=== PATIENT | female | born 1985 | race Caucasian/White ===

== ENCOUNTER 2020-08-11 09:14 | Emergency (ER) | payer MEDICAID ==
[~2020-08-11] VITALS: Ht 157.5 cm; Wt 45.0 kg
[~2020-08-11 09:14] MED LIST: CIPROFLOXACN500 MG PO; CONCEPT OB PO; PRENATAL1 TAB PO; PYRIDIUM200 MG PO; RHO (D) IMMUN300 MCG IM
[2020-08-11 09:38] VITALS: BP 143/67
[2020-08-11 11:40] LABS: HEMATOCRIT 43.4 % (37.0-47.0); IMMATURE GRANULOCYTES 0.2 % (0.0-5.0); MEAN CELL VOLUME 81.7 fL CALC (80.0-100.0); MEAN CORPUSCULAR HGB 26.4 pG CALC (26.0-32.0); MEAN CORPUSCULAR HGB CONC 32.3 g/dL CAL (32.0-36.0); NEUT# 6.65 thou/uL (2.00-7.15); RED BLOOD COUNT 5.31 mill/uL (4.20-5.60); RED CELL DISTRI WIDTH 12.9 % (11.5-15.5); URINE BILIRUBIN - DIPSTICK NEGATIVE (NEGATIVE); URINE BLOOD DIPSTICK NEGATIVE (NEGATIVE); URINE COLOR YELLOW; URINE GLUCOSE - DIPSTICK NEGATIVE (NEGATIVE); URINE KETONE NEGATIVE (NEGATIVE); URINE LEUK ESTERASE NEGATIVE (NEGATIVE); URINE PROTEIN - DIPSTICK NEGATIVE (NEG-TRACE); URINE UROBILINOGEN - DIPSTICK 0.2 E.U./dL (0.2)
[2020-08-11 11:41] LABS: URINE NITRITE - DIPSTICK NEGATIVE (Negative)
[2020-08-11 11:46] LABS: ALBUMIN 3.9 g/dL (3.2-5.0); ALKALINE PHOSPHATASE 89 u/l (38-126); AMYLASE 88 u/l (30-110); ANION GAP 9 (6-22 (CALC)); BILIRUBIN, TOTAL 0.3 mg/dL (0.0-1.4); BUN 13 mg/dL (7-17); BUN/CREATININE RATIO 23 (12-20 (CALC)); CARBON DIOXIDE 28 mmol/l (22-30); CHLORIDE 102 mmol/l (95-108); CREATININE 0.6 mg/dL (0.5-1.0); GFR > 60 ML/MIN (>=60 (CALC)); GFR FOR AFR.AMER. > 60 ML/MIN (>=60 (CALC)); LIPASE 67 u/l (23-300); SGOT/AST 18 u/l (14-36); SODIUM 135 mmol/l (137-146); TOTAL PROTEIN 6.3 g/dL (6.3-8.2)
== END 2020-08-11 14:01 | disposition home or self-care (01) ==
LOC: ED 09:14
PROVIDERS: Emergency Medicine
DX: R10.13 Epigastric pain (principal); R10.11 Right upper quadrant pain

== ENCOUNTER 2023-03-24 23:33 | Emergency (ER) | payer MEDICAID ==
[~2023-03-24] VITALS: Ht 157.5 cm; Wt 50.8 kg
[2023-03-25 00:22] VITALS: BP 118/63
[2023-03-25 01:00] VITALS: BP 113/68
[2023-03-25 01:05] LABS: BASO% 0.5 % (0-3); EOS% 0.9 % (0-8); HEMATOCRIT 34.6 % (37.0-47.0); HEMOGLOBIN 10.7 g/dl (12.0-16.0); IMMATURE GRANULOCYTES 0.2 % (0.0-5.0); LYMPH% 21.9 % (15-41); MEAN CELL VOLUME 72.7 fL CALC (80.0-100.0); MEAN CORPUSCULAR HGB 22.5 pG CALC (26.0-32.0); MEAN CORPUSCULAR HGB CONC 30.9 g/dL CAL (32.0-36.0); MONO% 12.9 % (2-13); NEUT# 2.81 thou/uL (2.00-7.15); NEUT% 63.6 % (42-76); RED BLOOD COUNT 4.76 mill/uL (4.20-5.60)
[2023-03-25 01:18] LABS: ALBUMIN 4.1 g/dL (3.2-5.0); ALKALINE PHOSPHATASE 54 u/l (38-126); BILIRUBIN, TOTAL 0.2 mg/dL (0.02-1.3); BUN 12 mg/dL (7-17); BUN/CREATININE RATIO 12 (12-20 (CALC)); CARBON DIOXIDE 26 mmol/l (22-30); CHLORIDE 110 mmol/l (95-108); ETHYL ALCOHOL 0 mg/dl (0-30); GFR FOR AFR.AMER. > 60 ML/MIN (>=60 (CALC)); GFR OTHER RACES > 60 ML/MIN (>=60 (CALC)); SGOT/AST 23 u/l (14-36); SODIUM 141 mmol/l (137-146); TOTAL PROTEIN 6.4 g/dL (6.3-8.2)
[2023-03-25 01:21] LABS: ANION GAP 8 (6-22 (CALC)); POTASSIUM 3.3 mmol/l (3.5-5.1)
[2023-03-25 02:00] VITALS: BP 110/68
[2023-03-25] MEDS ORDERED: INDERAL10 M1 PO (02:52)
[2023-03-25] MEDS ORDERED: ATIVAN1 M1 PO (02:52)
[2023-03-25 03:00] VITALS: BP 107/62; BP 107/67
== END 2023-03-25 03:10 | disposition home or self-care (01) ==
LOC: ED 23:33
PROVIDERS: Family Medicine
DX: F41.0 Panic disorder [episodic paroxysmal anxiety] (principal); E87.6 Hypokalemia; T42.4X6A Underdosing of benzodiazepines, initial encounter; Z91.128 Patient's intentional underdosing of medication regimen for other reason

== ENCOUNTER 2023-10-25 16:13 | Emergency (ER) | payer SELFPAY ==
[~2023-10-25] VITALS: Ht 157.5 cm; Wt 52.6 kg
[~2023-10-25 16:13] MED LIST changes: +ATIVAN1 M1 PO; +INDERAL10 M1 PO
[2023-10-25 16:52] VITALS: BP 132/71
[2023-10-25 16:55] VITALS: BP 119/74
[2023-10-25] MEDS ORDERED: SODIUM CHLORIDE 0.9% 1,000 ML IV ONE (16:55)
[2023-10-25 16:56] VITALS: BP 124/63
[2023-10-25 16:57] VITALS: BP 114/70
[2023-10-25 17:00] VITALS: BP 103/67
[2023-10-25 17:21] LABS: BASO% 0.2 % (0-3); EOS% 0.4 % (0-8); HEMATOCRIT 39.4 % (37.0-47.0); HEMOGLOBIN 12.7 g/dl (12.0-16.0); IMMATURE GRANULOCYTES 0.2 % (0.0-5.0); LYMPH% 11.5 % (15-41); MEAN CORPUSCULAR HGB 25.7 pG CALC (26.0-32.0); MEAN CORPUSCULAR HGB CONC 32.2 g/dL CAL (32.0-36.0); MONO% 8.7 % (2-13); NEUT# 7.78 thou/uL (2.00-7.15); RED BLOOD COUNT 4.95 mill/uL (4.20-5.60); RED CELL DISTRI WIDTH 16.3 % (11.5-15.5)
[2023-10-25 17:45] LABS: ALBUMIN 4.1 g/dL (3.2-5.0); BILIRUBIN, TOTAL 0.5 mg/dL (0.02-1.3); CREATININE 0.9 mg/dL (0.5-1.0); POTASSIUM 3.8 mmol/l (3.5-5.1); TOTAL PROTEIN 6.5 g/dL (6.3-8.2)
[2023-10-25 17:57] LABS: MEAN CELL VOLUME 79.6 fL CALC (80.0-100.0)
[2023-10-25 19:22] VITALS: BP 103/67
== END 2023-10-25 19:25 | disposition home or self-care (01) | DRG 125 ==
LOC: ED 16:13
PROVIDERS: Nurse Practitioner
DX: H53.8 Other visual disturbances (principal); R68.2 Dry mouth, unspecified; T36.8X5A Adverse effect of other systemic antibiotics, initial encounter; F41.9 Anxiety disorder, unspecified; Z98.82 Breast implant status